=== PATIENT | female | born 2000 | race Two or more races ===

== ENCOUNTER 2021-05-08 13:06 | Emergency (ER) | payer MEDICAID, OTHER ==
[~2021-05-08] VITALS: Ht 160 cm; Wt 56.7 kg
[2021-05-08 13:52] LABS: Urine Bacteria FEW /hpf (None Seen); Urine Blood 2+ /uL (Negative); Urine Mucus FEW (None Seen); Urine Specific Gravity 1.026 (1.001-1.035); Urine WBC 12 /hpf (0 - 5)
[2021-05-08] MEDS ORDERED: CEPH-322 PO (14:42)
[2021-05-08] MEDS ORDERED: KETOROLAC TROMETH 60MG/2ML VIAL IM ONE (14:45)
[2021-05-08 15:19] VITALS: BP 92/52
== END 2021-05-08 15:27 | disposition home or self-care (01) ==
LOC: ER 13:06
DX: N39.0 Urinary tract infection, site not specified (principal); Z79.899 Other long term (current) drug therapy
CPT/HCPCS: 81001; 81025; 96372; 99283; J1885